=== PATIENT | male | born 2005 | race Hispanic/Latino ===

== ENCOUNTER 2025-01-14 12:55 | Emergency (ER) | payer BC ==
[2025-01-14 13:42] LABS: Influenza A Ag Negative; Influenza B Ag Negative; SARS-CoV-2 Antigen Rapid Res Negative (Negative)
--- NOTE | 2025-01-14 14:11 | RAD REPORT ---
EXAMINATION: ONE VIEW CHEST XR CLINICAL INDICATION: SOB TECHNIQUE: Frontal chest projection is submitted. Examination is limited by patient positioning and t echnique. COMPARISON: 12/09/2020 FINDINGS: The lungs are well inflated and clear. The heart is normal in size. No displaced fractures identified . IMPRESSION: No acute intrathoracic abnormalities.
--- NOTE | 2025-01-14 14:13 | ER ---
Nurse's Notes [facility] Name: Yossi Madrigal Age: 19 yrs Sex: Male : 2005 Arrival Date: 01/14/2025 Time: 12:55 Bed 6 Private MD: Diagnosis: Viral illness, upper respiratory infection Presentation: 01/14 13:09 Chief complaint: Patient states: Weak, N/V, SOB, cough, sneezing started today. No ll1 known fever. Coronavirus screen: Client denies travel out of the [place] in the last 14 days. At this time, the client does not indicate any symptoms associated with coronavirus-19. Ebola Screen: Patient denies travel to an Ebola-affected area in the 21 days before illness onset. Initial Sepsis Screen: Does the patient meet any 2 criteria? No. Patient's initial sepsis screen is negative. Does the patient have a suspected source of infection? No. Patient's initial sepsis screen is negative. Risk Assessment: Do you want to hurt yourself or someone else? Patient reports no desire to harm self or others. Onset of symptoms was January 14, 2025. 13:09 Method Of Arrival: Ambulatory ll1 13:09 Acuity: BECKY 4 ll1 Triage Assessment: 13:03 General: Appears uncomfortable, Behavior is calm, cooperative, appropriate for age, bp Reports feeling ill for fatigue for. EENT: Reports sneezing. Neuro: Reports headache weakness. Respiratory: Reports shortness of breath cough that is dry. GI: Reports indigestion, nausea, vomiting. Historical: - Allergies: 13:02 No Known Allergies; ll1 - PMHx: 13:08 None; ll1 - PSHx: 13:08 Tonsillectomy; Adenoid excision; ll1 - Immunization history:: Adult Immunizations up to date. - Infectious Disease History:: Denies. - Social history:: Smoking status: Patient denies any tobacco usage or history of. Screenin:28 [facility] ED Fall Risk Assessment (Adult) History of falling in the last 3 months, bp including since admission No falls in past 3 months (0 pts) Confusion or Disorientation No (0 pts) Intoxicated or Sedated No (0 pts) Impaired Gait No (0 pts) Mobility Assist Device Used No (0 pt) Altered Elimination No (0 pt) Score/Fall Risk Level 0 - 2 = Low Risk Maintained a safe environment, Hourly rounding (assess needs \T\ fall precautionary measures) done. Abuse screen: Denies threats or abuse. Nutritional screening: No deficits noted. Tuberculosis screening: No symptoms or risk factors identified. Assessment: 13:05 General: SEE TRIAGE NOTE. bp 15:00 Reassessment: Patient states symptoms have improved. Pain: Denies pain. bp Vital Signs: 13:09 BP 112 / 74; Pulse 96; Resp 17; Temp 98.4; Pulse Ox 98% on R/A; Weight 72.57 kg; Height ll1 5 ft. 10 in. ; Pain 3/10; 14:59 BP 115 / 71; Pulse 91; Resp 18; Temp 98.5; Pulse Ox 99% ; bp 13:09 Body Mass Index 22.96 (72.57 kg, 177.8 cm) ll1 13:09 Pain Scale: Adult ll1 ED Course: 12:57 Patient arrived in ED. mr 13:02 Arm band placed on Patient placed in an exam room, on a stretcher. ll1 13:04 Jacobo Beltre, RN is Primary Nurse. bp 13:04 Kateryna Remy MD is Attending Physician. sp3 13:10 Triage completed. ll1 13:10 Patient has correct armband on for positive identification. Bed in low position. bp Provided Education on: ER procedures and process. 13:58 CXR XRAY In Process Unspecified. EDMS 15:00 No provider procedures requiring assistance completed. Patient did not have IV access bp during this emergency room visit. Administered Medications: No medications were administered Medication: 13:29 VIS not applicable for this client. bp Outcome: 14:12 Discharge ordered by . sp3 15:00 Discharged to home ambulatory, bp 15:00 Condition: stable 15:00 Discharge instructions given to patient, Instructed on discharge instructions, follow up and referral plans. Demonstrated understanding of instructions, follow-up care, 15:01 Patient left the ED. bp Signatures: Dispatcher [employer] EDMN Bisi Stephens, Reg Reg mr Jacobo Beltre, RN RN Deisy Oreilly RN RN ll1 Kateryna Remy MD MD sp3 Corrections: (The following items were deleted from the chart) 13:27 13:09 Chief complaint: Patient states: Weak, N/V, SOB, cough, sneezing started today. N bp known fever ll1
--- NOTE | 2025-01-14 14:13 | EDPHYS ---
Physician Documentation [facility] Name: Yossi Madrigal Age: 19 yrs Sex: Male : 2005 Arrival Date: 01/14/2025 Time: 12:55 Bed 6 Private MD: ED Physician Kateryna Remy HPI: 01/14 13:30 This 19 yrs old Male presents to ER via Ambulatory with complaints of Flu sp3 Symptoms. 13:30 19-year-old male with no past medical history presents with cough, congestion and sp3 bodyaches with flulike symptoms for 1 day. Possible sick contact reported. Patient denies any headache, objective fever, chest pain, shortness of breath, abdominal pain, nausea, vomiting, diarrhea, syncope, near syncope, rash, bleeding, or any other signs or symptoms on ROS at this time.. Historical: - Allergies: 13:02 No Known Allergies; ll1 - PMHx: 13:08 None; ll1 - PSHx: 13:08 Tonsillectomy; Adenoid excision; ll1 - Immunization history:: Adult Immunizations up to date. - Infectious Disease History:: Denies. - Social history:: Smoking status: Patient denies any tobacco usage or history of. ROS: 13:38 Constitutional: Negative for fever, chills, and weight loss, Eyes: Negative for injury, sp3 pain, redness, and discharge, Neck: Negative for injury, pain, and swelling, Cardiovascular: Negative for chest pain, palpitations, and edema, Abdomen/GI: Negative for abdominal pain, nausea, vomiting, diarrhea, and constipation, Back: Negative for injury and pain, MS/Extremity: Negative for injury and deformity, Skin: Negative for injury, rash, and discoloration, Neuro: Negative for headache, weakness, numbness, tingling, and seizure, Psych: Negative for depression, anxiety, suicide ideation, homicidal ideation, and hallucinations, Allergy/Immunology: Negative for hives, rash, and allergies, Endocrine: Negative for neck swelling, polydipsia, polyuria, polyphagia, and marked weight changes, Hematologic/Lymphatic: Negative for swollen nodes, abnormal bleeding, and unusual bruising, 13:38 All other systems are negative, Exam: 13:38 Constitutional: This is a well developed, well nourished patient who is awake, alert, sp3 and in no acute distress. Head/Face: Normocephalic, atraumatic. Eyes: Pupils equal round and reactive to light, extra-ocular motions intact. Lids and lashes normal. Conjunctiva and sclera are non-icteric and not injected. Cornea within normal limits. Periorbital areas with no swelling, redness, or edema. ENT: Nares patent. No nasal discharge, no septal abnormalities noted. External auditory canals are clear. Oropharynx with no redness, swelling, or masses, exudates, or evidence of obstruction, uvula midline. Mucous membranes moist. Neck: Trachea midline, no thyromegaly or masses palpated, and no cervical lymphadenopathy. Supple, full range of motion without nuchal rigidity, or vertebral point tenderness. No Meningismus. Chest/axilla: Normal chest wall appearance and motion. Nontender with no deformity. No lesions are appreciated. Cardiovascular: Regular rate and rhythm with a normal S1 and S2. No gallops, murmurs, or rubs. Normal PMI, no JVD. No pulse deficits. Respiratory: Lungs have equal breath sounds bilaterally, clear to auscultation and percussion. No rales, rhonchi or wheezes noted. No increased work of breathing, no retractions or nasal flaring. Abdomen/GI: Soft, non-tender, with normal bowel sounds. No distension or tympany. No guarding or rebound. No evidence of tenderness throughout. Back: No spinal tenderness. No costovertebral tenderness. Full range of motion. Skin: Warm, dry with normal turgor. Normal color with no rashes, no lesions, and no evidence of cellulitis. MS/ Extremity: Pulses equal, no cyanosis. Neurovascular intact. Full, normal range of motion. Neuro: Awake and alert, GCS 15, oriented to person, place, time, and situation. Cranial nerves II-XII grossly intact. Motor strength 5/5 in all extremities. Sensory grossly intact. Cerebellar exam normal. Normal gait. Psych: Awake, alert, with orientation to person, place and time. Behavior, mood, and affect are within normal limits. 13:38 ENT: Mild congestion noted objectively. Vital signs are normal. Patient is afebrile.. Vital Signs: 13:09 BP 112 / 74; Pulse 96; Resp 17; Temp 98.4; Pulse Ox 98% on R/A; Weight 72.57 kg; Height ll1 5 ft. 10 in. ; Pain 3/10; 14:59 BP 115 / 71; Pulse 91; Resp 18; Temp 98.5; Pulse Ox 99% ; bp 13:09 Body Mass Index 22.96 (72.57 kg, 177.8 cm) ll1 13:09 Pain Scale: Adult ll1 MDM: 13:04 Medical Screening Exam initiated sp3 13:40 Data reviewed: vital signs, lab test result(s), radiologic studies. ED course: sp3 19-year-old male with URI and flulike symptoms. Differential diagnosis includes viral illness, COVID-19, influenza, strep pharyngitis, bronchitis, pneumonia, among others. I am not highly suspicious of sepsis, shock, cardiac etiology, vascular etiology or any other critical process. Workup will include chest x-ray, strep screen, flu and COVID swab. Probable discharge home on conservative OTC treatment given today's day 1. Intervene with antibiotics if indicated. Otherwise follow-up with PCP.. 14:12 ED course: Full workup negative. Will safer discharge patient home with diagnosis of sp3 viral illness and OTC meds.. 01/14 13:04 Order name: Group A Streptococcus Rapid; Complete Time: 14:12 bp 01/14 13:04 Order name: COVID-19 Ag + Flu A+B Ag; Complete Time: 14:12 bp 01/14 13:34 Order name: Throat Culture EDVA 01/14 13:05 Order name: CXR XRAY; Complete Time: 14:12 bp Administered Medications: No medications were administered Disposition Summary: 01/14/25 14:12 Discharge Ordered Notes: Location: Home sp3 Condition: Stable sp3 Diagnosis - Viral illness, upper respiratory infection sp3 Followup: sp3 - With: Private Physician - When: Upon discharge from the Emergency Department - Reason: Recheck today's complaints Discharge Instructions: - Discharge Summary Sheet bp - Upper Respiratory Infection, Adult sp3 Forms: - Work release form bp - School release form ll1 - Family Work Release ll1 - Medication Reconciliation Form sp3 - Antibiotic Education sp3 - Prescription Opioid Use sp3 - Patient Portal Instructions sp3 - Leadership Thank You Letter sp3 Signatures: Dispatcher [employer] EDVA Jacobo Beltre RN RN bp Lewis, Lynsay, RN RN 1 Kateryna Remy, MD sp3
[2025-01-14 15:06] VITALS: BP 115/71; TEMP 98.5; O2SAT 99
== END 2025-01-14 15:01 | disposition home or self-care (01) ==
LOC: ER 12:55
DX: B34.9 Viral infection, unspecified (principal); J06.9 Acute upper respiratory infection, unspecified; Z11.52 Encounter for screening for COVID-19
CPT/HCPCS: 36415; 71045; 87070; 87428; 99283